=== PATIENT | male | born 1990 | race African-American/Black ===

== ENCOUNTER 2019-05-04 23:18 | Emergency (ER) | payer MEDICAID ==
[~2019-05-04] VITALS: Ht 167.6 cm; Wt 61.0 kg
[2019-05-05] MEDS ORDERED: IBUPROFEN 600MG TABLET PO ONE (02:00)
[2019-05-05 02:14] VITALS: BP 104/47
== END 2019-05-05 03:40 | disposition home or self-care (01) ==
LOC: ER 23:18
DX: S63.91XA Sprain of unspecified part of right wrist and hand, initial encounter (principal); F17.200 Nicotine dependence, unspecified, uncomplicated; V89.2XXA Person injured in unspecified motor-vehicle accident, traffic, initial encounter; Y93.89 Activity, other specified; Y92.89 Other specified places as the place of occurrence of the external cause; Y99.8 Other external cause status
CPT/HCPCS: 73130; 99283